=== PATIENT | female | born 1950 | race Caucasian/White ===

== ENCOUNTER 2022-11-11 12:25 | Inpatient (IN) | payer MEDICARE, OTHER ==
[~2022-11-11] VITALS: Ht 167.6 cm; Wt 94.2 kg
[2022-11-11] VITALS (10 sets, daily range): BP systolic 93–134; BP diastolic 56–75
[2022-11-11] MEDS ORDERED: VANCOMYCIN HCL 750 MG, VIAL MATE ADAPTER 1 EACH in D5W 250 ML IV SCH (13:00)
[2022-11-11 15:24] LABS: ABG HCO3 20.6 MEQ/L (22.0-26.0); ABG O2 SATURATION 97.9 % (95.0-99.0); ABG PARTIAL PRESSURE CO2 45.2 mmHg (35.0-45.0); ABG PARTIAL PRESSURE O2 112.8 mmHg (75.0-100.0); ABG STANDARD HCO3 19.5 MEQ/L (22.0-26.0); ABG pH (ARTERIAL) 7.276 UNITS (7.350-7.450)
[2022-11-11] MEDS ORDERED: GLUCAGON INJ 1MG VIAL SC PRN (15:25)
[2022-11-11] MEDS ORDERED: DEXTROSE 50% 50ML SYRINGE IV PRN (15:25)
[2022-11-11] MEDS ORDERED: GLUCOSE 4GM CHEW TABLET PO PRN (15:25)
[2022-11-11] MEDS ORDERED: VANCOMYCIN HCL 1,000 MG, VIAL MATE ADAPTER 1 EACH in NS 250 ML IV SCH (15:30)
[2022-11-11 16:11] LABS: BASO % 0.1 % (0.0-1.0); HEMATOCRIT 26.9 % (36.0-47.0); HEMOGLOBIN 8.8 g/dl (12.0-15.5); LYMPH # 0.2 10^3/uL (1.5-5.0); LYMPH % 1.5 % (24.0-44.0); MEAN CORPUSCULAR HEMOGLOBIN 30.8 pg (27.0-33.0); MEAN CORPUSCULAR HGB CONC 32.7 g/dl (32.0-36.5); MEAN CORPUSCULAR VOLUME 94.1 fl (80.0-96.0); MONO # 0.3 10^3/uL (0.0-0.8); MONO % 2.6 % (2.0-8.0); NEUTROPHILS % 95.3 % (36.0-66.0); PLATELET COUNT, AUTOMATED 171 10^3/uL (150-450); RED BLOOD COUNT 2.86 10^6/uL (4.00-5.40); WHITE BLOOD COUNT 10.5 10^3/uL (4.0-10.0)
[2022-11-11 16:32] LABS: MAGNESIUM LEVEL 1.3 MG/DL (1.8-2.4); PHOSPHORUS LEVEL 3.7 MG/DL (2.4-5.1)
[2022-11-11] MEDS: IPRATROPIUM 0.5MG/ALBUTEROL 2.5MG INH SOL UD 3ML (DUONEB) NEB SCH ×2 (16:43→21:01)
[2022-11-11] MEDS ORDERED: NS 1,000 ML IV SCH (17:00)
[2022-11-11] MEDS ORDERED: MAG SULF 1GM/100ML (MAG RUN) 1 GM in IV 1 EA IV ONE ×2 (17:05→23:00)
[2022-11-11] MEDS: ACETAMINOPHEN 650MG SUPP PR PRN (17:09)
[2022-11-11] MEDS: PIPERACILLIN/TAZOBACTAM SOD 3.375 GM in D5W MINI-BAG PLUS 50 ML IV SCH ×2 (17:31→22:29)
[2022-11-11 18:18] LABS: RSV AMPLIFICATION POSITIVE (NEGATIVE)
[2022-11-11] MEDS: INSULIN LISPRO (NovoLOG) PER UNIT SC SCH ×2 (18:34→23:55)
[2022-11-11 19:47] LABS: ALBUMIN 2.7 G/DL (3.2-5.2); BILIRUBIN,TOTAL 0.4 MG/DL (0.3-1.2); CALCIUM LEVEL 7.2 MG/DL (8.3-10.6); CREATININE FOR GFR 1.29 MG/DL (0.55-1.30); GLOMERULAR FILTRATION RATE 43.1 (>39); TOTAL PROTEIN 5.6 G/DL (5.7-8.2)
[2022-11-11] MEDS: methylPREDNISolone 40MG 1ML VIAL IV SCH (20:11)
[2022-11-11] MEDS ORDERED: ATOR40TA75 PO ×2 (20:12→20:23)
[2022-11-11] MEDS ORDERED: PIPE4INJ IV (20:12)
[2022-11-11] MEDS ORDERED: VANC1.5P19 IV (20:12)
[2022-11-11] MEDS ORDERED: ENOX40IN3 SC (20:12)
[2022-11-11] MEDS ORDERED: ACET1TAB55 PO (20:12)
[2022-11-11] MEDS ORDERED: INSU100V2 SQ (20:12)
[2022-11-11] MEDS ORDERED: MUCI600T31 PO (20:12)
[2022-11-11] MEDS ORDERED: IPRA0.00 INH (20:12)
[2022-11-11] MEDS ORDERED: BENZ-18 PO (20:12)
[2022-11-11] MEDS ORDERED: MAGN400T2 PO (20:20)
[2022-11-11] MEDS ORDERED: METH40VIAL IV (20:20)
[2022-11-11] MEDS ORDERED: ATIV2INJ5 IV (20:20)
[2022-11-11] MEDS ORDERED: PANT40TA29 PO (20:20)
[2022-11-11] MEDS ORDERED: ECOT81TA5 PO (20:20)
[2022-11-11] MEDS ORDERED: TRUS1SOL OP (20:20)
[2022-11-11] MEDS ORDERED: BIMA0.036 OD (20:20)
[2022-11-11] MEDS ORDERED: LEVA12INH INH (20:20)
[2022-11-11] MEDS ORDERED: OCUVCAP PO (20:20)
[2022-11-11] MEDS ORDERED: BACI1CAP PO (20:20)
[2022-11-11] MEDS ORDERED: CITA20TA7 PO (20:23)
[2022-11-11] MEDS ORDERED: LISI30TA4 PO (20:23)
[2022-11-11] MEDS ORDERED: VITA200012 PO (20:23)
[2022-11-11] MEDS ORDERED: HYDR-3490 PO (20:23)
[2022-11-11] MEDS ORDERED: NAME28CA PO (20:23)
[2022-11-11] MEDS ORDERED: NAPR-885 PO (20:23)
[2022-11-11] MEDS ORDERED: ZOLO100T PO (20:26)
[2022-11-11] MEDS ORDERED: METF-838 PO (20:26)
[2022-11-11] MEDS ORDERED: HOME MED LIST COMPLETE! XX SCH (20:30)
[2022-11-11 21:56] LABS: MAGNESIUM LEVEL 1.6 MG/DL (1.8-2.4)
[2022-11-12] VITALS (12 sets, daily range): BP systolic 135–184; BP diastolic 69–91
[2022-11-12] MEDS: methylPREDNISolone 40MG 1ML VIAL IV SCH ×3 (04:18→20:10)
[2022-11-12] MEDS: PIPERACILLIN/TAZOBACTAM SOD 3.375 GM in D5W MINI-BAG PLUS 50 ML IV SCH ×4 (04:18→23:04)
[2022-11-12 04:55] LABS: HEMATOCRIT 28.2 % (36.0-47.0); HEMOGLOBIN 9.1 g/dl (12.0-15.5); MEAN CORPUSCULAR HEMOGLOBIN 30.2 pg (27.0-33.0); MEAN CORPUSCULAR HGB CONC 32.3 g/dl (32.0-36.5); MEAN CORPUSCULAR VOLUME 93.7 fl (80.0-96.0); PLATELET COUNT, AUTOMATED 184 10^3/uL (150-450); RED BLOOD COUNT 3.01 10^6/uL (4.00-5.40); WHITE BLOOD COUNT 8.7 10^3/uL (4.0-10.0)
[2022-11-12] MEDS ORDERED: HEPARIN SOD (PORCINE) 5000UNITS/ML 1ML VIAL/SYRINGE SC SCH (06:00)
[2022-11-12] MEDS: INSULIN LISPRO (NovoLOG) PER UNIT SC SCH ×3 (06:10→17:27)
[2022-11-12 06:12] LABS: ABG BASE EXCESS -4.5 (-2.0-2.0); ABG O2 SATURATION 48.4 % (95.0-99.0); ABG PARTIAL PRESSURE CO2 46.6 mmHg (35.0-45.0); ABG STANDARD HCO3 19.9 MEQ/L (22.0-26.0); ABG TOTAL CO2 23.4 MEQ/L (23.0-31.0); ABG pH (ARTERIAL) 7.291 UNITS (7.350-7.450)
[2022-11-12 06:15] LABS: ALBUMIN 2.8 G/DL (3.2-5.2); BILIRUBIN,TOTAL 0.5 MG/DL (0.3-1.2); CALCIUM LEVEL 8.1 MG/DL (8.3-10.6); CREATININE FOR GFR 1.27 MG/DL (0.55-1.30); GLOMERULAR FILTRATION RATE 43.9 (>39); TOTAL PROTEIN 5.9 G/DL (5.7-8.2)
[2022-11-12 06:15] LABS: ABG PARTIAL PRESSURE O2 26.5 mmHg (75.0-100.0)
[2022-11-12 06:52] LABS: ABG BASE EXCESS -3.9 (-2.0-2.0); ABG HCO3 22.1 MEQ/L (22.0-26.0); ABG PARTIAL PRESSURE CO2 43.7 mmHg (35.0-45.0); ABG PARTIAL PRESSURE O2 96.7 mmHg (75.0-100.0); ABG STANDARD HCO3 21.2 MEQ/L (22.0-26.0); ABG TOTAL CO2 23.4 MEQ/L (23.0-31.0); ABG pH (ARTERIAL) 7.321 UNITS (7.350-7.450)
[2022-11-12] MEDS: IPRATROPIUM 0.5MG/ALBUTEROL 2.5MG INH SOL UD 3ML (DUONEB) NEB SCH ×4 (07:40→19:37)
[2022-11-12] MEDS: ACETAMINOPHEN 650MG SUPP PR PRN (07:58)
[2022-11-12] MEDS ORDERED: HEPARIN SOD (PORCINE) 5000UNITS/ML 1ML VIAL/SYRINGE IV PRN (08:35)
[2022-11-12] MEDS ORDERED: PANTOPRAZOLE 40MG VIAL IV SCH (09:00)
[2022-11-12] MEDS ORDERED: ASPIRIN 300 MG SUPP PR SCH (09:00)
[2022-11-12 09:16] LABS: HEMATOCRIT 30.6 % (36.0-47.0); HEMOGLOBIN 9.6 g/dl (12.0-15.5); MEAN CORPUSCULAR HEMOGLOBIN 29.7 pg (27.0-33.0); MEAN CORPUSCULAR HGB CONC 31.4 g/dl (32.0-36.5); MEAN CORPUSCULAR VOLUME 94.7 fl (80.0-96.0); PLATELET COUNT, AUTOMATED 211 10^3/uL (150-450); RED BLOOD COUNT 3.23 10^6/uL (4.00-5.40); WHITE BLOOD COUNT 10.8 10^3/uL (4.0-10.0)
[2022-11-12] MEDS ORDERED: hydrALAZINE 20MG/ML 1ML VIAL IV PRN (09:35)
[2022-11-12] MEDS: HEPARIN DRIP 25,000 UNITS in IV 1 EA IV SCH (10:28)
[2022-11-12] MEDS ORDERED: VANCOMYCIN HCL 750 MG, VIAL MATE ADAPTER 1 EACH in D5W 250 ML IV SCH ×2 (12:00→13:00)
[2022-11-12 15:29] LABS: MB/CK RELATIVE INDEX 0.99 (< OR =4)
[2022-11-12] MEDS: LEVALBUTEROL 1.25MG 0.5ML CONCENTRATE NEB INH PRN (22:22)
[2022-11-13] VITALS: BP 142/82
[2022-11-13 01:05] LABS: CK-MB VALUE MASS 9.8 NG/ML (<3.6)
[2022-11-13] MEDS ORDERED: NS 1,000 ML IV SCH (02:15)
[2022-11-13] MEDS: methylPREDNISolone 40MG 1ML VIAL IV SCH ×3 (03:04→20:40)
[2022-11-13 04:00] VITALS: BP 150/75
[2022-11-13] MEDS: PIPERACILLIN/TAZOBACTAM SOD 3.375 GM in D5W MINI-BAG PLUS 50 ML IV SCH ×4 (04:55→23:48)
[2022-11-13 05:54] LABS: ABG BASE EXCESS -2.6 (-2.0-2.0); ABG HCO3 22.4 MEQ/L (22.0-26.0); ABG O2 SATURATION 97.1 % (95.0-99.0); ABG PARTIAL PRESSURE CO2 39.8 mmHg (35.0-45.0); ABG PARTIAL PRESSURE O2 101.1 mmHg (75.0-100.0); ABG STANDARD HCO3 22.3 MEQ/L (22.0-26.0); ABG TOTAL CO2 23.7 MEQ/L (23.0-31.0); ABG pH (ARTERIAL) 7.369 UNITS (7.350-7.450)
[2022-11-13] MEDS: INSULIN LISPRO (NovoLOG) PER UNIT SC SCH ×4 (06:00→17:02)
[2022-11-13 07:00] LABS: HEMATOCRIT 25.4 % (36.0-47.0); HEMOGLOBIN 8.3 g/dl (12.0-15.5); MEAN CORPUSCULAR HEMOGLOBIN 30.5 pg (27.0-33.0); MEAN CORPUSCULAR HGB CONC 32.7 g/dl (32.0-36.5); MEAN CORPUSCULAR VOLUME 93.4 fl (80.0-96.0); PLATELET COUNT, AUTOMATED 212 10^3/uL (150-450); RED BLOOD COUNT 2.72 10^6/uL (4.00-5.40); WHITE BLOOD COUNT 7.4 10^3/uL (4.0-10.0)
[2022-11-13] MEDS: HEPARIN DRIP 25,000 UNITS in IV 1 EA IV SCH (07:20)
[2022-11-13 07:28] LABS: CK-MB VALUE MASS 6.4 NG/ML (<3.6)
[2022-11-13 07:29] LABS: CALCIUM LEVEL 8.3 MG/DL (8.3-10.6); CREATININE FOR GFR 1.2 MG/DL (0.55-1.30); GLOMERULAR FILTRATION RATE 46.9 (>39); POTASSIUM SERUM 4.1 MMOL/L (3.5-5.1)
[2022-11-13 07:32] LABS: MB/CK RELATIVE INDEX 0.91 (< OR =4)
[2022-11-13] MEDS: IPRATROPIUM 0.5MG/ALBUTEROL 2.5MG INH SOL UD 3ML (DUONEB) NEB SCH ×5 (07:33→19:37)
[2022-11-13 08:00] VITALS: BP 148/70
[2022-11-13] MEDS: CitaloPRAM (CeleXA) 20 MG TAB PO SCH (09:00)
[2022-11-13] MEDS: PANTOPRAZOLE 40MG TAB (PROTONIX) PO SCH (11:20)
[2022-11-13] MEDS: ASPIRIN 325 MG TAB PO SCH (11:21)
[2022-11-13 12:00] VITALS: BP 128/68
[2022-11-13] MEDS: SERTRALINE 100 MG TAB PO SCH (12:42)
[2022-11-13] MEDS ORDERED: DONE10TA90 PO (13:47)
[2022-11-13 16:00] VITALS: BP 146/78
[2022-11-13 20:00] VITALS: BP 115/64
[2022-11-13] MEDS ORDERED: DORZOLAMIDE 2% OPHTH SOLN 10 ML BTL OU SCH (21:00)
[2022-11-13] MEDS ORDERED: INSULIN LISPRO (NovoLOG) PER UNIT SC SCH (21:00)
[2022-11-14] VITALS: BP 118/60
[2022-11-14] MEDS: LEVALBUTEROL 1.25MG 0.5ML CONCENTRATE NEB INH PRN (02:40)
[2022-11-14 04:00] VITALS: BP 119/68
[2022-11-14] MEDS: PIPERACILLIN/TAZOBACTAM SOD 3.375 GM in D5W MINI-BAG PLUS 50 ML IV SCH (04:12)
[2022-11-14] MEDS: methylPREDNISolone 40MG 1ML VIAL IV SCH (04:12)
[2022-11-14 05:22] LABS: CALCIUM LEVEL 8.2 MG/DL (8.3-10.6); CREATININE FOR GFR 1.81 MG/DL (0.55-1.30); GLOMERULAR FILTRATION RATE 29.2 (>39); POTASSIUM SERUM 4.2 MMOL/L (3.5-5.1)
[2022-11-14 06:19] LABS: ABG BASE EXCESS -11.7 (-2.0-2.0); ABG HCO3 14.7 MEQ/L (22.0-26.0); ABG O2 SATURATION 99.4 % (95.0-99.0); ABG PARTIAL PRESSURE CO2 35.1 mmHg (35.0-45.0); ABG PARTIAL PRESSURE O2 219.1 mmHg (75.0-100.0); ABG TOTAL CO2 15.7 MEQ/L (23.0-31.0)
[2022-11-14 06:22] LABS: ABG pH (ARTERIAL) 7.239 UNITS (7.350-7.450)
[2022-11-14] MEDS: IPRATROPIUM 0.5MG/ALBUTEROL 2.5MG INH SOL UD 3ML (DUONEB) NEB SCH ×3 (07:25→11:08)
[2022-11-14] MEDS: INSULIN LISPRO (NovoLOG) PER UNIT SC SCH (07:30)
[2022-11-14] MEDS: HEPARIN DRIP 25,000 UNITS in IV 1 EA IV SCH (07:33)
[2022-11-14] MEDS: SERTRALINE 100 MG TAB PO SCH (09:00)
[2022-11-14] MEDS: PANTOPRAZOLE 40MG TAB (PROTONIX) PO SCH (09:00)
[2022-11-14] MEDS: ASPIRIN 325 MG TAB PO SCH (09:00)
[2022-11-14] MEDS: CitaloPRAM (CeleXA) 20 MG TAB PO SCH (09:00)
[2022-11-14 09:26] VITALS: BP 127/98
[2022-11-14 10:01] VITALS: BP 122/56
[2022-11-14 10:36] LABS: MEAN CORPUSCULAR HGB CONC 30.7 g/dl (32.0-36.5); MEAN CORPUSCULAR VOLUME 97.6 fl (80.0-96.0); PLATELET COUNT, AUTOMATED 356 10^3/uL (150-450)
[2022-11-14 10:39] LABS: HEMATOCRIT 20.5 % (36.0-47.0); HEMOGLOBIN 6.3 g/dl (12.0-15.5)
[2022-11-14] MEDS ORDERED: SODIUM BICARBONATE 150 MEQ in STERILE WATER LITER BAG 1,000 ML IV SCH (12:00)
[2022-11-14] MEDS ORDERED: LORazepam 2 MG/ML 1ML VIAL IV PRN (12:50)
[2022-11-14] MEDS ORDERED: MORPHINE 2 MG/ML 1ML VIAL IV PRN (12:50)
[2022-11-14] MEDS ORDERED: ONDANSETRON 4MG 2ML VIAL IV PRN (12:50)
[2022-11-14] MEDS ORDERED: SCOPOLAMINE 1MG TRANSDERMAL PATCH TOP PRN (12:50)
[2022-11-14] MEDS ORDERED: ATROPINE SULFATE 1% OPHTH SOLN 2ML BTL SL PRN (13:50)
[2022-11-14 15:08] LABS: BODY FLUID CULTURE Not indicated. (.); LEGIONELLA ANTIGEN URINE Negative (Negative); ORGANISM ID Not indicated. (.); SPECIMEN SOURCE Urine (.); URINE STREP PNEUMONIAE ANTIGEN Negative (Negative)
[2022-11-14] MEDS ORDERED: methylPREDNISolone 40MG 1ML VIAL IV SCH (16:00)
== END 2022-11-14 14:10 | disposition expired | DRG 871 ==
LOC: M ICU 14:44
PROVIDERS: ADMIT Internal Medicine; ATTEND Internal Medicine
PROC: B246ZZZ Ultrasonography of Right and Left Heart (ICD-10-PCS; principal; 2022-11-11)
DX: A41.9 Sepsis, unspecified organism (principal); J96.01 Acute respiratory failure with hypoxia; J12.1 Respiratory syncytial virus pneumonia; I21.4 Non-ST elevation (NSTEMI) myocardial infarction; N17.9 Acute kidney failure, unspecified; D62 Acute posthemorrhagic anemia; E87.20 Acidosis, unspecified; M79.81 Nontraumatic hematoma of soft tissue; G30.9 Alzheimer's disease, unspecified; Z51.5 Encounter for palliative care; Z66 Do not resuscitate; F02.80 Dementia in other diseases classified elsewhere, unspecified severity, without behavioral disturbance, psychotic disturbance, mood disturbance, and anxiety; E11.9 Type 2 diabetes mellitus without complications; E78.5 Hyperlipidemia, unspecified; R33.9 Retention of urine, unspecified; I25.10 Atherosclerotic heart disease of native coronary artery without angina pectoris; I10 Essential (primary) hypertension; K21.9 Gastro-esophageal reflux disease without esophagitis; J45.909 Unspecified asthma, uncomplicated; F32.A Depression, unspecified; E83.42 Hypomagnesemia; J20.9 Acute bronchitis, unspecified; Z98.49 Cataract extraction status, unspecified eye; Z87.891 Personal history of nicotine dependence; Z88.1 Allergy status to other antibiotic agents; Z79.82 Long term (current) use of aspirin; Z79.84 Long term (current) use of oral hypoglycemic drugs; Z79.899 Other long term (current) drug therapy